=== PATIENT | female | born 1960 | race African-American/Black ===

== ENCOUNTER 2018-08-19 18:43 | Emergency (ER) | payer SELFPAY ==
[~2018-08-19] VITALS: Ht 162.6 cm; Wt 73.0 kg
[2018-08-19] MEDS ORDERED: SODIUM CHLORIDE 0.9% 1,000 ML IV ONE (23:27)
[2018-08-20 00:20] LABS: BASOPHILS % 0.6 % (0.0-2.0); EOSINOPHILS % 2.7 % (0.0-5.0); HEMATOCRIT. 38.1 % (36.0-48.0); HEMOGLOBIN. 12.3 g/dL (12.0-16.0); LYMPHOCYTES % 43.6 % (20.0-50.0); MEAN CORPUSCULAR HEMOGLOBIN 27.2 pg (28.0-32.0); MEAN CORPUSCULAR VOLUME 84.5 fL (81.0-99.0); MEAN PLATELET VOLUME 7.7 fl (7.4-10.4); MONOCYTES % 7.7 % (2.0-8.0); NEUTROPHILS % 45.4 % (40.0-76.0); PLATELET 305 x1000/uL (130-400); RED BLOOD CELL COUNT 4.51 mill/uL (4.2-5.4); RED CELL DISTRIBUTION WIDTH 13.7 % (11.6-14.6)
[2018-08-20 00:25] LABS: CHLORIDE 105 mEq/L (98-107)
[2018-08-20 00:33] LABS: ETHANOL BLOOD < 10 mg/dL
[2018-08-20 02:17] LABS: CLARITY URINE CLEAR (CLEAR); COLOR URINE YELLOW (YELLOW); KETONES URINE NEGATIVE (NEGATIVE); LEUKOCYTE ESTERASE URINE NEGATIVE (NEGATIVE); NITRITE URINE NEGATIVE (NEGATIVE); OCCULT BLOOD URINE NEGATIVE (NEGATIVE); PROTEIN URINE NEGATIVE (NEGATIVE); SPECIFIC GRAVITY URINE 1.009 (1.005-1.030); UROBILINOGEN URINE 0.2 E.U./dL (0.2-1.0)
[2018-08-20 02:32] LABS: *BARBITURATES SCREEN URINE NEGATIVE (NEGATIVE); *BENZODIAZEPINES SCREEN URINE NEGATIVE (NEGATIVE); *COCAINE SCREEN URINE NEGATIVE (NEGATIVE); METHADONE URINE SCREEN NEGATIVE (NEGATIVE); OPIATES URINE SCREEN NEGATIVE (NEGATIVE); PHENCYCLIDINE URINE SCREEN NEGATIVE (NEGATIVE)
[2018-08-20 02:33] LABS: *AMPHETAMINES SCREEN URINE NEGATIVE (NEGATIVE); CANNABINOID URINE SCREEN PRESUMTIVE POSITIVE (NEGATIVE)
[2018-08-20 02:34] VITALS: BP 143/71
== END 2018-08-20 02:39 | disposition home or self-care (01) ==
LOC: ER 18:43
DX: E03.9 Hypothyroidism, unspecified (principal); E11.9 Type 2 diabetes mellitus without complications; Z87.891 Personal history of nicotine dependence
CPT/HCPCS: 36415; 70450; 71045; 80053; 80305; 81003; 83690; 83880; 84443; 84484; 85025; 93005; 99284; G0482; J7030

== ENCOUNTER 2018-08-28 15:26 | Inpatient (IN) | payer SELFPAY ==
[~2018-08-28] VITALS: Ht 157.5 cm; Wt 82.6 kg
[2018-08-28] MEDS ORDERED: SODIUM CHLORIDE 0.9% 1,000 ML IV ONE (17:56)
[2018-08-28] MEDS ORDERED: MECLIZINE 25MG TABLET PO ONE (18:00)
[2018-08-28 18:55] LABS: BASOPHILS % 1.1 % (0.0-2.0); EOSINOPHILS % 1.6 % (0.0-5.0); HEMATOCRIT. 43.1 % (36.0-48.0); HEMOGLOBIN. 14.1 g/dL (12.0-16.0); LYMPHOCYTES % 35.5 % (20.0-50.0); MEAN CORPUSCULAR HEMOGLOBIN 27.9 pg (28.0-32.0); MEAN CORPUSCULAR VOLUME 85.3 fL (81.0-99.0); MONOCYTES % 5.6 % (2.0-8.0); NEUTROPHILS % 56.2 % (40.0-76.0); PLATELET 340 x1000/uL (130-400); RED BLOOD CELL COUNT 5.06 mill/uL (4.2-5.4); RED CELL DISTRIBUTION WIDTH 13.6 % (11.6-14.6)
[2018-08-28 19:00] LABS: CHLORIDE 105 mEq/L (98-107)
[2018-08-28 19:06] LABS: D-DIMER 0.26 mg/L FEU (<0.50); PARTIAL THROMBOPLASTIN TIME 26.9 sec (23.4-31.0)
[2018-08-28] MEDS ORDERED: ASPIRIN 325MG EC TABLET PO ONE (20:45)
[2018-08-28] MEDS ORDERED: ONDANSETRON HCL 4MG/2ML INJ IV PRN (22:30)
[2018-08-28] MEDS ORDERED: MAGNESIUM/ALUMINUM HYDROXIDE/SIMETHICONE 30ML UDC PO PRN (22:30)
[2018-08-28] MEDS ORDERED: ACETAMINOPHEN 325MG TABLET PO PRN (22:30)
[2018-08-28] MEDS ORDERED: HYDRALAZINE 20MG/ML VIAL IV PRN (22:30)
[2018-08-28] MEDS ORDERED: HYDROMORPHONE HCL/PF 2MG/ML CPJ IV PRN (22:30)
[2018-08-28] MEDS ORDERED: GUAIFENESIN 200MG/10ML SUGAR FREE UDC PO PRN (22:30)
[2018-08-28] MEDS ORDERED: DOCUSATE SODIUM 100MG CAPSULE PO PRN (22:30)
[2018-08-28] MEDS ORDERED: CLONIDINE 0.1MG TABLET PO PRN (22:30)
[2018-08-28] MEDS ORDERED: IPRATROPIUM/ALBUTEROL 0.5-3(2.5)MG/3ML NEB INH PRN (22:30)
[2018-08-28] MEDS ORDERED: HYDROCODONE/ACETAMINOPHEN 5/325MG TABLET PO PRN (22:30)
[2018-08-28] MEDS ORDERED: DIPHENHYDRAMINE 50MG/ML VIAL IV PRN (22:30)
[2018-08-28] MEDS ORDERED: LORAZEPAM 2MG/ML CPJ IV PRN (22:30)
[2018-08-29 03:00] VITALS: BP 133/71
[2018-08-29 04:00] VITALS: BP 136/65
[2018-08-29] MEDS: SODIUM CHLORIDE 0.9% INJ 3ML FLUSH IVF SCH ×2 (06:40→14:00)
[2018-08-29 07:34] LABS: BASOPHILS % 0.5 % (0.0-2.0); EOSINOPHILS % 2.2 % (0.0-5.0); HEMATOCRIT. 38.1 % (36.0-48.0); HEMOGLOBIN. 12.3 g/dL (12.0-16.0); MEAN CORPUSCULAR HEMOGLOBIN 27.2 pg (28.0-32.0); MEAN CORPUSCULAR VOLUME 84.3 fL (81.0-99.0); MEAN PLATELET VOLUME 7.9 fl (7.4-10.4); MONOCYTES % 5.9 % (2.0-8.0); NEUTROPHILS % 50.4 % (40.0-76.0); PLATELET 290 x1000/uL (130-400); RED BLOOD CELL COUNT 4.52 mill/uL (4.2-5.4); RED CELL DISTRIBUTION WIDTH 13.6 % (11.6-14.6)
[2018-08-29 07:57] LABS: CHLORIDE 109 mEq/L (98-107)
[2018-08-29 08:00] VITALS: BP 112/57
[2018-08-29 08:09] LABS: CREATINE KINASE 74 IU/L (26-192); T4 FREE 1.03 ng/dL (0.76-1.46)
[2018-08-29 08:10] LABS: HDL CHOLESTEROL 61 mg/dL (40-59)
[2018-08-29 08:11] LABS: LDL CHOLESTEROL 89 mg/dL (5-100)
[2018-08-29 08:18] LABS: CREATINE KINASE MB FRACTION < 1.0 ng/mL (0.5-3.6)
[2018-08-29] MEDS ORDERED: ENOXAPARIN 40MG/0.4ML SYR SUBCUT SCH (09:00)
[2018-08-29] MEDS ORDERED: ASPIRIN 81MG EC TABLET PO SCH (09:00)
[2018-08-29 11:57] VITALS: BP 127/66
[2018-08-29 16:00] VITALS: BP 118/64
[2018-08-29 16:06] LABS: CREATINE KINASE 72 IU/L (26-192)
[2018-08-29 16:07] LABS: CREATINE KINASE MB FRACTION < 1.0 ng/mL (0.5-3.6)
[2018-08-29] MEDS ORDERED: LEVO50TA PO (16:33)
[2018-08-29] MEDS ORDERED: METF-414 PO (16:33)
[2018-08-29] MEDS ORDERED: LOSA25TA12 MT (16:33)
== END 2018-08-29 18:00 | disposition home or self-care (01) | DRG 111 ==
LOC: ER 15:26 → 6WST 20:23 → ENRESERV 08-29 00:20
PROVIDERS: ADMIT Internal Medicine; ATTEND Internal Medicine
DX: R42 Dizziness and giddiness (principal); E03.9 Hypothyroidism, unspecified; R07.9 Chest pain, unspecified; E11.9 Type 2 diabetes mellitus without complications; F10.10 Alcohol abuse, uncomplicated; I10 Essential (primary) hypertension; Z79.899 Other long term (current) drug therapy
CPT/HCPCS: 36415; 71045; 80061; 82550; 82553; 82962; 83036; 83880; 84439; 84443; 84484; 85379; 93005; 93306; 93970; 96374; 99285; J1650; J7030; J8597

== ENCOUNTER 2019-02-25 16:43 | Inpatient (IN) | payer OTHER ==
[~2019-02-25] VITALS: Ht 160 cm; Wt 76.2 kg
[~2019-02-25 16:43] MED LIST: LEVO50TA PO; LOSA25TA26 MT; METF-414 PO
[2019-02-25] MEDS ORDERED: MORPHINE SULFATE 4 MG/ML CPJ (NOT FOR IM USE) IV STA (17:18)
[2019-02-25] MEDS ORDERED: ONDANSETRON HCL 4MG/2ML INJ IV STA (17:18)
[2019-02-25] MEDS ORDERED: ASPIRIN 81MG TABLET PO ONE (17:30)
[2019-02-25 17:41] LABS: CHLORIDE 106 mEq/L (98-107)
[2019-02-25 17:42] LABS: BASOPHILS % 0.6 % (0.0-2.0); EOSINOPHILS % 1.7 % (0.0-5.0); HEMATOCRIT. 37.2 % (36.0-48.0); HEMOGLOBIN. 12.2 g/dL (12.0-16.0); LYMPHOCYTES % 41.3 % (20.0-50.0); MEAN CORPUSCULAR HEMOGLOBIN 27.5 pg (28.0-32.0); MEAN CORPUSCULAR VOLUME 83.9 fL (81.0-99.0); MEAN PLATELET VOLUME 7.7 fl (7.4-10.4); NEUTROPHILS % 50.4 % (40.0-76.0); PLATELET 299 x1000/uL (130-400); RED BLOOD CELL COUNT 4.43 mill/uL (4.2-5.4); RED CELL DISTRIBUTION WIDTH 14.1 % (11.6-14.6)
[2019-02-25 17:45] LABS: ETHANOL BLOOD < 10 mg/dL
[2019-02-25 17:46] LABS: PARTIAL THROMBOPLASTIN TIME 27.2 sec (23.4-31.0); PROTHROMBIN TIME 10.2 sec (9.6-11.0)
[2019-02-25 18:51] LABS: CLARITY URINE CLEAR (CLEAR); COLOR URINE YELLOW (YELLOW); KETONES URINE NEGATIVE (NEGATIVE); LEUKOCYTE ESTERASE URINE NEGATIVE (NEGATIVE); NITRITE URINE NEGATIVE (NEGATIVE); OCCULT BLOOD URINE NEGATIVE (NEGATIVE); PROTEIN URINE NEGATIVE (NEGATIVE); UROBILINOGEN URINE 0.2 E.U./dL (0.2-1.0)
[2019-02-25 19:01] LABS: *AMPHETAMINES SCREEN URINE NEGATIVE (NEGATIVE); *BARBITURATES SCREEN URINE NEGATIVE (NEGATIVE); CANNABINOID URINE SCREEN PRESUMTIVE POSITIVE (NEGATIVE); OPIATES URINE SCREEN PRESUMTIVE POSITIVE (NEGATIVE); PHENCYCLIDINE URINE SCREEN NEGATIVE (NEGATIVE)
[2019-02-25 19:02] LABS: *BENZODIAZEPINES SCREEN URINE NEGATIVE (NEGATIVE); *COCAINE SCREEN URINE NEGATIVE (NEGATIVE); METHADONE URINE SCREEN NEGATIVE (NEGATIVE)
[2019-02-25] MEDS ORDERED: GABA-529 PO (22:29)
[2019-02-25] MEDS ORDERED: GABA-529 MT (22:29)
[2019-02-25] MEDS ORDERED: gabapentin (22:30)
[2019-02-25] MEDS ORDERED: iron PO (22:31)
[2019-02-25 23:03] VITALS: BP 124/37
[2019-02-25 23:28] VITALS: BP 124/37
[2019-02-25] MEDS ORDERED: IPRATROPIUM/ALBUTEROL 0.5-3(2.5)MG/3ML NEB INH PRN (23:30)
[2019-02-25] MEDS ORDERED: CLONIDINE 0.1MG TABLET PO PRN (23:30)
[2019-02-25] MEDS ORDERED: ACETAMINOPHEN 325MG TABLET PO PRN (23:30)
[2019-02-25] MEDS ORDERED: MAGNESIUM/ALUMINUM HYDROXIDE/SIMETHICONE 30ML UDC PO PRN (23:30)
[2019-02-25] MEDS ORDERED: DOCUSATE SODIUM 100MG CAPSULE PO PRN (23:30)
[2019-02-25] MEDS ORDERED: ONDANSETRON HCL 4MG/2ML INJ IV PRN (23:30)
[2019-02-26] VITALS (61 sets, daily range): BP systolic 95–153; BP diastolic 39–98
[2019-02-26 02:15] LABS: CHLORIDE 108 mEq/L (98-107)
[2019-02-26] MEDS ORDERED: ATROPINE SULFATE 1MG/10ML SYR IV NR (04:30)
[2019-02-26] MEDS ORDERED: ATROPINE SULFATE 1MG/10ML SYR IV PRN (05:15)
[2019-02-26 05:47] LABS: BASOPHILS % 0.7 % (0.0-2.0); EOSINOPHILS % 2.4 % (0.0-5.0); HEMOGLOBIN. 11.3 g/dL (12.0-16.0); LYMPHOCYTES % 52.8 % (20.0-50.0); MEAN CORPUSCULAR HEMOGLOBIN 27.8 pg (28.0-32.0); MEAN PLATELET VOLUME 7.7 fl (7.4-10.4); MONOCYTES % 5.8 % (2.0-8.0); NEUTROPHILS % 38.3 % (40.0-76.0); PLATELET 274 x1000/uL (130-400); RED BLOOD CELL COUNT 4.05 mill/uL (4.2-5.4); RED CELL DISTRIBUTION WIDTH 13.7 % (11.6-14.6)
[2019-02-26 05:53] LABS: LDL CHOLESTEROL 103 mg/dL (5-100)
[2019-02-26 05:54] LABS: CREATINE KINASE 99 IU/L (26-192); HDL CHOLESTEROL 62 mg/dL (40-59)
[2019-02-26 05:58] LABS: CREATINE KINASE MB FRACTION < 1.0 ng/mL (0.5-3.6)
[2019-02-26] MEDS: ENOXAPARIN 40MG/0.4ML SYR SUBCUT SCH ×2 (08:08→08:30)
[2019-02-26] MEDS: ASPIRIN 81MG EC TABLET PO SCH ×2 (08:08→08:30)
[2019-02-26] MEDS ORDERED: POTASSIUM CHLORIDE 20MEQ TABLET SR PO NR (12:15)
[2019-02-26] MEDS: HYDROCODONE/ACETAMINOPHEN 5/325MG TABLET PO PRN ×2 (14:48→23:07)
[2019-02-26 21:25] LABS: CREATINE KINASE 98 IU/L (26-192); T4 FREE 0.85 ng/dL (0.76-1.46)
[2019-02-26 21:26] LABS: CREATINE KINASE MB FRACTION < 1.0 ng/mL (0.5-3.6)
[2019-02-27] VITALS (47 sets, daily range): BP systolic 88–139; BP diastolic 41–85
[2019-02-27 04:37] LABS: BASOPHILS % 0.7 % (0.0-2.0); EOSINOPHILS % 2.1 % (0.0-5.0); HEMATOCRIT. 36.6 % (36.0-48.0); HEMOGLOBIN. 12.4 g/dL (12.0-16.0); LYMPHOCYTES % 50.4 % (20.0-50.0); MEAN CORPUSCULAR HEMOGLOBIN 28.4 pg (28.0-32.0); MEAN CORPUSCULAR VOLUME 83.7 fL (81.0-99.0); MEAN PLATELET VOLUME 7.6 fl (7.4-10.4); MONOCYTES % 6.9 % (2.0-8.0); NEUTROPHILS % 39.9 % (40.0-76.0); PLATELET 289 x1000/uL (130-400); RED BLOOD CELL COUNT 4.37 mill/uL (4.2-5.4); RED CELL DISTRIBUTION WIDTH 13.6 % (11.6-14.6)
[2019-02-27 04:39] LABS: CHLORIDE 104 mEq/L (98-107)
[2019-02-27 04:50] LABS: CREATINE KINASE 90 IU/L (26-192); LDL CHOLESTEROL 122 mg/dL (5-100)
[2019-02-27 04:51] LABS: CREATINE KINASE MB FRACTION < 1.0 ng/mL (0.5-3.6); HDL CHOLESTEROL 65 mg/dL (40-59)
[2019-02-27] MEDS ORDERED: REGADENOSON 0.4 MG/5 ML IV ONE (08:57)
[2019-02-27] MEDS ORDERED: HEPARIN SODIUM 1,000 UNIT/1ML VIAL IV ONE (12:19)
[2019-02-27] MEDS ORDERED: NICARDIPINE 100MCG/ML 10ML VIAL (CATH LAB) IV ONE (12:19)
[2019-02-27] MEDS ORDERED: NITROGLYCERIN 50MCG/ML 10ML VIAL (CATH LAB) IV ONE (12:19)
[2019-02-27] MEDS ORDERED: ASPIRIN/SOD BICARB/CITRIC ACID 324MG TAB EFF ONE (14:27)
[2019-02-27] MEDS ORDERED: IODIXANOL 320MG/ML 100 ML BOTTLE IV ONE (14:28)
[2019-02-27] MEDS ORDERED: LIDOCAINE HCL 1% 20ML VIAL (Pyxis) INJ ONE (14:28)
[2019-02-27] MEDS ORDERED: MIDAZOLAM HCL 2 MG/2 ML VIAL ONE (14:31)
[2019-02-27] MEDS ORDERED: FENTANYL CITRATE/PF 50MCG/ML 2ML VIAL ONE (14:31)
[2019-02-27] MEDS ORDERED: ONDANSETRON HCL 4MG/2ML INJ IV PRN (15:15)
[2019-02-27] MEDS ORDERED: MORPHINE SULFATE 2 MG/ML CPJ (NOT FOR IM USE) IV PRN (15:15)
[2019-02-27] MEDS ORDERED: ATROPINE SULFATE 1MG/10ML SYR IV PRN (15:15)
[2019-02-27] MEDS ORDERED: ACETAMINOPHEN 325MG TABLET PO PRN (15:15)
[2019-02-27] MEDS ORDERED: SODIUM CHLORIDE 0.45% 500 ML IV ONE (15:15)
[2019-02-27] MEDS: SODIUM CHLORIDE 0.45% 1,000 ML IV SCH (19:32)
[2019-02-28] VITALS (7 sets, daily range): BP systolic 113–151; BP diastolic 63–77
[2019-02-28] MEDS: SODIUM CHLORIDE 0.45% 1,000 ML IV SCH (03:29)
[2019-02-28 07:27] LABS: BASOPHILS % 0.4 % (0.0-2.0); EOSINOPHILS % 1.8 % (0.0-5.0); HEMATOCRIT. 40.4 % (36.0-48.0); HEMOGLOBIN. 13.3 g/dL (12.0-16.0); LYMPHOCYTES % 34.5 % (20.0-50.0); MEAN CORPUSCULAR HEMOGLOBIN 27.9 pg (28.0-32.0); MEAN CORPUSCULAR VOLUME 84.4 fL (81.0-99.0); MEAN PLATELET VOLUME 7.8 fl (7.4-10.4); MONOCYTES % 7.3 % (2.0-8.0); PLATELET 299 x1000/uL (130-400); RED BLOOD CELL COUNT 4.78 mill/uL (4.2-5.4); RED CELL DISTRIBUTION WIDTH 13.6 % (11.6-14.6)
[2019-02-28 07:40] LABS: CHLORIDE 104 mEq/L (98-107)
[2019-02-28] MEDS: ASPIRIN 81MG EC TABLET PO SCH (08:13)
[2019-02-28] MEDS: ENOXAPARIN 40MG/0.4ML SYR SUBCUT SCH (09:00)
[2019-02-28] MEDS ORDERED: ASPI-1158 PO (11:54)
[2019-02-28] MEDS ORDERED: ATOR20TA65 MT (11:54)
== END 2019-02-28 16:02 | disposition home or self-care (01) | DRG 287 ==
LOC: ER 18:01 → 5WST 20:40 → EDBEDREQ 20:45 → EDBEDREQTM 20:45 → ENRESERV 21:02 → MICUNO 02-26 00:30 → 5EST 02-27 11:55 → 3WST 02-27 15:42
PROVIDERS: ADMIT Internal Medicine; ATTEND Internal Medicine
PROC: 4A023N7 Measurement of Cardiac Sampling and Pressure, Left Heart, Percutaneous Approach (ICD-10-PCS; principal; 2019-02-27)
PROC: B2111ZZ Fluoroscopy of Multiple Coronary Arteries using Low Osmolar Contrast (ICD-10-PCS; 2019-02-27)
PROC: B2151ZZ Fluoroscopy of Left Heart using Low Osmolar Contrast (ICD-10-PCS; 2019-02-27)
DX: I44.1 Atrioventricular block, second degree (principal); E11.42 Type 2 diabetes mellitus with diabetic polyneuropathy; I42.9 Cardiomyopathy, unspecified; E03.9 Hypothyroidism, unspecified; R07.9 Chest pain, unspecified; D50.9 Iron deficiency anemia, unspecified; I25.9 Chronic ischemic heart disease, unspecified; F12.90 Cannabis use, unspecified, uncomplicated; I10 Essential (primary) hypertension; E78.5 Hyperlipidemia, unspecified; Z82.3 Family history of stroke; Z87.891 Personal history of nicotine dependence; Z79.890 Hormone replacement therapy; Z71.51 Drug abuse counseling and surveillance of drug abuser
CPT/HCPCS: 36415; 71045; 78452; 80048; 80061; 80305; 80320; 81003; 82550; 82553; 83735; 83880; 84439; 84443; 84481; 84484; 85379; 93005; 93017; 93306; 93458; 93970; 96374; 96375; 99285; A9500; C1769; C1893; J0461; J1644; J1650; J2250; J2270; J2405; J2785; J3010; J3490; J7620; Q9967; G0480

== ENCOUNTER 2019-09-30 18:30 | Emergency (ER) | payer OTHER ==
[~2019-09-30] VITALS: Ht 160 cm; Wt 69.0 kg
[~2019-09-30 18:30] MED LIST changes: +ASPI-1158 PO; +ATOR20TA65 MT; -LEVO50TA PO; -LOSA25TA26 MT; +gabapentin
[2019-09-30] MEDS ORDERED: NITROGLYCERIN 0.4MG TABLET SL SL PRN (22:45)
[2019-09-30] MEDS ORDERED: ASPIRIN 81MG TABLET PO ONE (22:45)
[2019-10-01 00:39] LABS: BASOPHILS % 0.6 % (0.0-2.0); EOSINOPHILS % 1.5 % (0.0-5.0); HEMATOCRIT. 37.9 % (36.0-48.0); HEMOGLOBIN. 12.6 g/dL (12.0-16.0); LYMPHOCYTES % 40.9 % (20.0-50.0); MEAN CORPUSCULAR VOLUME 84.1 fL (81.0-99.0); MEAN PLATELET VOLUME 7.4 fl (7.4-10.4); MONOCYTES % 7.6 % (2.0-8.0); NEUTROPHILS % 49.4 % (40.0-76.0); PLATELET 288 x1000/uL (130-400); RED BLOOD CELL COUNT 4.51 mill/uL (4.2-5.4); RED CELL DISTRIBUTION WIDTH 13.6 % (11.6-14.6)
[2019-10-01 00:45] LABS: CHLORIDE 105 mEq/L (98-107)
[2019-10-01 04:43] VITALS: BP 132/64
== END 2019-10-01 04:53 | disposition home or self-care (01) ==
LOC: ER 18:30
DX: R07.89 Other chest pain (principal); I11.9 Hypertensive heart disease without heart failure; E11.9 Type 2 diabetes mellitus without complications; E03.9 Hypothyroidism, unspecified; Z79.82 Long term (current) use of aspirin
CPT/HCPCS: 36415; 71045; 80053; 83880; 84484; 85025; 93005; 99285

== ENCOUNTER 2019-11-28 12:16 | Emergency (ER) | payer OTHER ==
[~2019-11-28] VITALS: Ht 157.5 cm; Wt 73.0 kg
[2019-11-28 13:50] VITALS: BP 115/72
== END 2019-11-28 14:26 | disposition home or self-care (01) ==
LOC: ER 12:16
DX: J40 Bronchitis, not specified as acute or chronic (principal); I11.9 Hypertensive heart disease without heart failure; E11.9 Type 2 diabetes mellitus without complications; E03.9 Hypothyroidism, unspecified; Z79.82 Long term (current) use of aspirin
CPT/HCPCS: 99281

== ENCOUNTER 2020-05-03 22:30 | Emergency (ER) | payer OTHER ==
[~2020-05-03] VITALS: Ht 162.6 cm; Wt 73.0 kg
[2020-05-03] MEDS ORDERED: ONDANSETRON HCL 4MG/2ML INJ IV STA (23:32)
[2020-05-03] MEDS ORDERED: SODIUM CHLORIDE 0.9% 1,000 ML IV ONE (23:32)
[2020-05-03] MEDS ORDERED: KETOROLAC 30MG/ML VIAL IV STA (23:32)
[2020-05-03] MEDS ORDERED: MAGNESIUM/ALUMINUM HYDROXIDE/SIMETHICONE 30ML UDC PO STA (23:32)
[2020-05-04 00:56] LABS: BASOPHILS % 0.3 % (0.0-2.0); EOSINOPHILS % 0.2 % (0.0-5.0); HEMATOCRIT. 36.6 % (36.0-48.0); HEMOGLOBIN. 12.4 g/dL (12.0-16.0); LYMPHOCYTES % 14.7 % (20.0-50.0); MEAN CORPUSCULAR HEMOGLOBIN 28.4 pg (28.0-32.0); MEAN CORPUSCULAR VOLUME 83.7 fL (81.0-99.0); MEAN PLATELET VOLUME 7.5 fl (7.4-10.4); MONOCYTES % 4.4 % (2.0-8.0); NEUTROPHILS % 80.4 % (40.0-76.0); PLATELET 260 x1000/uL (130-400); RED BLOOD CELL COUNT 4.38 mill/uL (4.2-5.4); RED CELL DISTRIBUTION WIDTH 13.5 % (11.6-14.6)
[2020-05-04 00:58] LABS: CHLORIDE 105 mEq/L (98-107)
[2020-05-04 04:15] VITALS: BP 122/68
== END 2020-05-04 04:34 | disposition home or self-care (01) ==
LOC: ER 22:30
DX: R10.9 Unspecified abdominal pain (principal); A05.9 Bacterial foodborne intoxication, unspecified; E11.9 Type 2 diabetes mellitus without complications; E03.9 Hypothyroidism, unspecified; Z79.82 Long term (current) use of aspirin
CPT/HCPCS: 36415; 76705; 80053; 83690; 85025; 93005; 96361; 96374; 96375; 99285; J1885; J2405; J7030

== ENCOUNTER 2020-06-17 10:24 | Emergency (ER) | payer OTHER ==
[~2020-06-17] VITALS: Ht 157.5 cm; Wt 72.0 kg
[2020-06-17 12:06] LABS: BASOPHILS % 0.6 % (0.0-2.0); EOSINOPHILS % 2.6 % (0.0-5.0); HEMATOCRIT. 36.7 % (36.0-48.0); HEMOGLOBIN. 12.1 g/dL (12.0-16.0); LYMPHOCYTES % 36.7 % (20.0-50.0); MEAN CORPUSCULAR HEMOGLOBIN 27.9 pg (28.0-32.0); MEAN CORPUSCULAR VOLUME 84.7 fL (81.0-99.0); MEAN PLATELET VOLUME 8.5 fl (7.4-10.4); MONOCYTES % 6.7 % (2.0-8.0); NEUTROPHILS % 53.4 % (40.0-76.0); PLATELET 270 x1000/uL (130-400); RED BLOOD CELL COUNT 4.33 mill/uL (4.2-5.4); RED CELL DISTRIBUTION WIDTH 13.5 % (11.6-14.6)
[2020-06-17 12:09] LABS: CHLORIDE 104 mEq/L (98-107)
[2020-06-17 12:16] LABS: CLARITY URINE CLEAR (CLEAR); COLOR URINE YELLOW (YELLOW); KETONES URINE NEGATIVE (NEGATIVE); LEUKOCYTE ESTERASE URINE NEGATIVE (NEGATIVE); NITRITE URINE NEGATIVE (NEGATIVE); OCCULT BLOOD URINE NEGATIVE (NEGATIVE); PROTEIN URINE NEGATIVE (NEGATIVE); UROBILINOGEN URINE 0.2 E.U./dL (0.2-1.0)
[2020-06-17 12:39] LABS: *AMPHETAMINES SCREEN URINE NEGATIVE (NEGATIVE); *BARBITURATES SCREEN URINE NEGATIVE (NEGATIVE)
[2020-06-17 12:40] LABS: *BENZODIAZEPINES SCREEN URINE NEGATIVE (NEGATIVE); *COCAINE SCREEN URINE NEGATIVE (NEGATIVE); CANNABINOID URINE SCREEN PRESUMTIVE POSITIVE (NEGATIVE); METHADONE URINE SCREEN NEGATIVE (NEGATIVE); OPIATES URINE SCREEN NEGATIVE (NEGATIVE); PHENCYCLIDINE URINE SCREEN NEGATIVE (NEGATIVE)
[2020-06-17 15:01] VITALS: BP 123/74
== END 2020-06-17 15:30 | disposition home or self-care (01) ==
LOC: ER 10:24
DX: M94.0 Chondrocostal junction syndrome [Tietze] (principal); F12.10 Cannabis abuse, uncomplicated; E11.9 Type 2 diabetes mellitus without complications; Z79.899 Other long term (current) drug therapy
CPT/HCPCS: 36415; 71045; 80053; 80305; 81003; 83605; 83880; 84484; 85025; 93005; 99285

== ENCOUNTER 2020-12-10 18:58 | Inpatient (IN) | payer SELFPAY ==
[~2020-12-10] VITALS: Ht 162.6 cm; Wt 67.3 kg
[~2020-12-10 18:58] MED LIST changes: -ASPI-1158 PO; +ASPI-1406 PO
[2020-12-10] MEDS ORDERED: METHYLPREDNISOLONE SOD SUCC 125 MG/2 ML VIAL IV ONE (20:45)
[2020-12-10] MEDS ORDERED: IPRATROPIUM/ALBUTEROL 0.5-3(2.5)MG/3ML NEB HHN ONE (20:45)
[2020-12-10 20:54] LABS: BASOPHILS % 0.5 % (0.0-2.0); CHLORIDE 106 mEq/L (98-107); EOSINOPHILS % 0.8 % (0.0-5.0); HEMOGLOBIN. 13.6 g/dL (12.0-16.0); LYMPHOCYTES % 12.7 % (20.0-50.0); MEAN CORPUSCULAR HEMOGLOBIN 28.2 pg (28.0-32.0); MEAN CORPUSCULAR VOLUME 85.5 fL (81.0-99.0); MEAN PLATELET VOLUME 7.7 fl (7.4-10.4); MONOCYTES % 7.2 % (2.0-8.0); NEUTROPHILS % 78.8 % (40.0-76.0); PLATELET 289 x1000/uL (130-400); RED CELL DISTRIBUTION WIDTH 13.4 % (11.6-14.6)
[2020-12-11] MEDS ORDERED: ALBUTEROL (0.083%) 2.5MG/3ML NEB HHN ONE (00:15)
[2020-12-11] MEDS ORDERED: IPRATROPIUM BROMIDE (0.02%) 0.5MG/2.5ML NEB HHN ONE (00:15)
[2020-12-11] MEDS: METHYLPREDNISOLONE SOD SUCC 40 MG/ML VIAL IV SCH ×2 (06:00→13:38)
[2020-12-11 10:30] VITALS: BP 130/79
[2020-12-11 11:00] VITALS: BP 113/62
[2020-12-11] MEDS ORDERED: LEVOTHYROXINE SODIUM 50MCG TABLET PO ONE (11:15)
[2020-12-11] MEDS: LEVOTHYROXINE SODIUM 50MCG TABLET PO SCH (12:00)
[2020-12-11] MEDS ORDERED: *PATIENT'S OWN MEDICATION STORAGE XX SCH (12:00)
[2020-12-11] MEDS ORDERED: IPRATROPIUM/ALBUTEROL 0.5-3(2.5)MG/3ML NEB HHN PRN (12:15)
[2020-12-11] MEDS ORDERED: DEXTROSE 50% WATER 50ML SYRINGE IV PRN (12:15)
[2020-12-11] MEDS ORDERED: ALBUTEROL (0.083%) 2.5MG/3ML NEB HHN SCH (12:45)
[2020-12-11] MEDS: INSULIN LISPRO 100 UNITS/ML SUBCUT SCH ×3 (12:50→22:30)
[2020-12-11] MEDS: BLOOD SUGAR DIAGNOSTIC STRIP TEST SCH ×3 (13:19→21:50)
[2020-12-11] MEDS: LEVOFLOXACIN 500MG PREMIX 100 ML IV SCH ×2 (13:38→13:39)
[2020-12-11] MEDS ORDERED: TRAMADOL 50MG TABLET PO PRN (13:45)
[2020-12-11] MEDS: ENOXAPARIN 40MG/0.4ML SYR SUBCUT SCH (14:30)
[2020-12-11] MEDS: IPRATROPIUM/ALBUTEROL 0.5-3(2.5)MG/3ML NEB HHN SCH ×2 (15:06→21:23)
[2020-12-11 16:00] VITALS: BP 119/65
[2020-12-11] MEDS ORDERED: NON FORMULARY PATIENT HOME MED ORI SCH (17:00)
[2020-12-11] MEDS: METFORMIN HCL 500MG TABLET PO SCH (17:47)
[2020-12-11 20:00] VITALS: BP 137/72
[2020-12-11] MEDS: BUDESONIDE 0.5MG/2ML NEB HHN SCH (21:27)
[2020-12-11] MEDS: FAMOTIDINE 20MG/2ML VIAL IV SCH (22:38)
[2020-12-12] VITALS: BP 108/56
[2020-12-12] MEDS: IPRATROPIUM/ALBUTEROL 0.5-3(2.5)MG/3ML NEB HHN SCH ×3 (01:09→20:23)
[2020-12-12 04:00] VITALS: BP 119/59
[2020-12-12] MEDS: INSULIN LISPRO 100 UNITS/ML SUBCUT SCH ×4 (07:50→21:00)
[2020-12-12 08:00] VITALS: BP 142/75
[2020-12-12] MEDS: METFORMIN HCL 500MG TABLET PO SCH ×2 (08:18→17:21)
[2020-12-12] MEDS: LEVOTHYROXINE SODIUM 50MCG TABLET PO SCH (08:19)
[2020-12-12] MEDS: BLOOD SUGAR DIAGNOSTIC STRIP TEST SCH ×4 (08:19→21:30)
[2020-12-12] MEDS: ENOXAPARIN 40MG/0.4ML SYR SUBCUT SCH (08:20)
[2020-12-12] MEDS: BUDESONIDE 0.5MG/2ML NEB HHN SCH ×2 (08:34→20:24)
[2020-12-12] MEDS: FAMOTIDINE 20MG/2ML VIAL IV SCH (08:35)
[2020-12-12 10:43] LABS: BASOPHILS % 0.1 % (0.0-2.0); EOSINOPHILS % 0.1 % (0.0-5.0); HEMATOCRIT. 38.9 % (36.0-48.0); HEMOGLOBIN. 12.8 g/dL (12.0-16.0); LYMPHOCYTES % 15.1 % (20.0-50.0); MEAN CORPUSCULAR VOLUME 84.8 fL (81.0-99.0); MEAN PLATELET VOLUME 7.7 fl (7.4-10.4); MONOCYTES % 6.8 % (2.0-8.0); NEUTROPHILS % 77.9 % (40.0-76.0); PLATELET 320 x1000/uL (130-400); RED BLOOD CELL COUNT 4.58 mill/uL (4.2-5.4); RED CELL DISTRIBUTION WIDTH 13.2 % (11.6-14.6)
[2020-12-12 10:56] LABS: CHLORIDE 104 mEq/L (98-107)
[2020-12-12] MEDS ORDERED: FUROSEMIDE 40MG/4ML VIAL IVP NR (11:28)
[2020-12-12 12:00] VITALS: BP 133/60
[2020-12-12] MEDS: LOSARTAN POTASSIUM 25 MG TABLET PO SCH (12:05)
[2020-12-12] MEDS: ASPIRIN 81MG EC TABLET PO SCH (12:05)
[2020-12-12 12:08] LABS: *AMPHETAMINES SCREEN URINE NEGATIVE (NEGATIVE); *BARBITURATES SCREEN URINE NEGATIVE (NEGATIVE); *BENZODIAZEPINES SCREEN URINE NEGATIVE (NEGATIVE); *COCAINE SCREEN URINE NEGATIVE (NEGATIVE)
[2020-12-12 12:09] LABS: CANNABINOID URINE SCREEN PRESUMTIVE POSITIVE (NEGATIVE); METHADONE URINE SCREEN NEGATIVE (NEGATIVE); OPIATES URINE SCREEN PRESUMTIVE POSITIVE (NEGATIVE); PHENCYCLIDINE URINE SCREEN NEGATIVE (NEGATIVE)
[2020-12-12 16:00] VITALS: BP 105/65
[2020-12-12] MEDS ORDERED: IOHEXOL-350 100 ML BOTTLE ONE (18:34)
[2020-12-12 20:00] VITALS: BP 135/48
[2020-12-12] MEDS: FAMOTIDINE 20MG TABLET PO SCH (21:30)
[2020-12-12] MEDS: ATORVASTATIN CALCIUM 20MG TABLET PO SCH (21:30)
[2020-12-12] MEDS: METHYLPREDNISOLONE SOD SUCC 40 MG/ML VIAL IV SCH (21:32)
[2020-12-13] VITALS: BP 135/67
[2020-12-13] MEDS: IPRATROPIUM/ALBUTEROL 0.5-3(2.5)MG/3ML NEB HHN SCH ×6 (00:32→23:51)
[2020-12-13 04:00] VITALS: BP 140/72
[2020-12-13] MEDS: LEVOTHYROXINE SODIUM 50MCG TABLET PO SCH (06:03)
[2020-12-13] MEDS: METHYLPREDNISOLONE SOD SUCC 40 MG/ML VIAL IV SCH ×2 (06:03→13:47)
[2020-12-13] MEDS: BLOOD SUGAR DIAGNOSTIC STRIP TEST SCH ×4 (06:03→20:58)
[2020-12-13] MEDS: INSULIN LISPRO 100 UNITS/ML SUBCUT SCH ×4 (06:21→20:58)
[2020-12-13] MEDS: METFORMIN HCL 500MG TABLET PO SCH ×2 (06:23→17:15)
[2020-12-13 08:00] VITALS: BP 133/61
[2020-12-13] MEDS: FUROSEMIDE 40MG/4ML VIAL IVP SCH (08:20)
[2020-12-13] MEDS: LOSARTAN POTASSIUM 25 MG TABLET PO SCH (08:21)
[2020-12-13] MEDS: ONDANSETRON HCL 4MG/2ML INJ IV PRN (08:21)
[2020-12-13] MEDS: ASPIRIN 81MG EC TABLET PO SCH (08:21)
[2020-12-13] MEDS: FAMOTIDINE 20MG TABLET PO SCH ×2 (08:21→20:57)
[2020-12-13] MEDS: ENOXAPARIN 40MG/0.4ML SYR SUBCUT SCH (08:24)
[2020-12-13] MEDS: BUDESONIDE 0.5MG/2ML NEB HHN SCH ×2 (09:18→19:52)
[2020-12-13] MEDS: LEVOFLOXACIN 500MG TABLET PO SCH (11:51)
[2020-12-13 12:00] VITALS: BP 132/48
[2020-12-13 16:00] VITALS: BP 117/59
[2020-12-13] MEDS ORDERED: BACLOFEN 10MG TABLET PO PRN (17:00)
[2020-12-13] MEDS ORDERED: BACLOFEN 10MG TABLET PO NR (17:00)
[2020-12-13] MEDS: PREDNISONE 20MG TABLET PO SCH (17:15)
[2020-12-13 20:00] VITALS: BP 119/50
[2020-12-13] MEDS: ATORVASTATIN CALCIUM 20MG TABLET PO SCH (20:57)
[2020-12-14] VITALS: BP 118/59
[2020-12-14] MEDS: IPRATROPIUM/ALBUTEROL 0.5-3(2.5)MG/3ML NEB HHN SCH ×4 (03:39→16:00)
[2020-12-14 04:00] VITALS: BP 116/56
[2020-12-14] MEDS: LEVOTHYROXINE SODIUM 50MCG TABLET PO SCH (06:24)
[2020-12-14] MEDS: INSULIN LISPRO 100 UNITS/ML SUBCUT SCH ×5 (06:25→20:47)
[2020-12-14] MEDS: BLOOD SUGAR DIAGNOSTIC STRIP TEST SCH ×4 (06:26→20:47)
[2020-12-14 08:00] VITALS: BP 118/82
[2020-12-14] MEDS: LOSARTAN POTASSIUM 25 MG TABLET PO SCH (08:16)
[2020-12-14] MEDS: FAMOTIDINE 20MG TABLET PO SCH ×2 (08:16→20:47)
[2020-12-14] MEDS: ASPIRIN 81MG EC TABLET PO SCH (08:16)
[2020-12-14] MEDS: FUROSEMIDE 40MG/4ML VIAL IVP SCH (08:17)
[2020-12-14] MEDS: METFORMIN HCL 500MG TABLET PO SCH ×2 (08:17→17:54)
[2020-12-14] MEDS: ENOXAPARIN 40MG/0.4ML SYR SUBCUT SCH (08:18)
[2020-12-14] MEDS: PREDNISONE 20MG TABLET PO SCH ×2 (08:20→17:54)
[2020-12-14] MEDS: BUDESONIDE 0.5MG/2ML NEB HHN SCH (08:38)
[2020-12-14] MEDS: ONDANSETRON HCL 4MG/2ML INJ IV PRN (10:59)
[2020-12-14 12:00] VITALS: BP 115/70
[2020-12-14] MEDS: LEVOFLOXACIN 500MG TABLET PO SCH (12:21)
[2020-12-14] MEDS ORDERED: TERBUTALINE SULFATE 1MG/ML VIAL SUBCUT NR (13:00)
[2020-12-14 13:34] LABS: CHLORIDE 97 mEq/L (98-107)
[2020-12-14 16:00] VITALS: BP 111/52
[2020-12-14] MEDS: DILTIAZEM HCL 30MG TABLET PO SCH ×2 (17:55→21:40)
[2020-12-14 20:00] VITALS: BP 138/72
[2020-12-14] MEDS: IPRATROPIUM BROMIDE (0.02%) 0.5MG/2.5ML NEB HHN SCH (20:14)
[2020-12-14] MEDS: ATORVASTATIN CALCIUM 20MG TABLET PO SCH (20:47)
[2020-12-15] VITALS: BP 105/55
[2020-12-15 04:00] VITALS: BP 134/81
[2020-12-15] MEDS: IPRATROPIUM BROMIDE (0.02%) 0.5MG/2.5ML NEB HHN SCH ×4 (04:50→21:00)
[2020-12-15] MEDS: DILTIAZEM HCL 30MG TABLET PO SCH (05:56)
[2020-12-15] MEDS: LEVOTHYROXINE SODIUM 50MCG TABLET PO SCH (05:58)
[2020-12-15] MEDS: BLOOD SUGAR DIAGNOSTIC STRIP TEST SCH ×4 (06:35→21:00)
[2020-12-15] MEDS: INSULIN LISPRO 100 UNITS/ML SUBCUT SCH ×4 (06:35→21:00)
[2020-12-15 08:00] VITALS: BP 115/70
[2020-12-15] MEDS: ASPIRIN 81MG EC TABLET PO SCH (09:17)
[2020-12-15] MEDS: FAMOTIDINE 20MG TABLET PO SCH ×2 (09:17→22:25)
[2020-12-15] MEDS: PREDNISONE 20MG TABLET PO SCH ×2 (09:18→17:46)
[2020-12-15] MEDS: FUROSEMIDE 40MG/4ML VIAL IVP SCH (09:18)
[2020-12-15] MEDS: LOSARTAN POTASSIUM 25 MG TABLET PO SCH (09:18)
[2020-12-15] MEDS: ENOXAPARIN 40MG/0.4ML SYR SUBCUT SCH (09:19)
[2020-12-15] MEDS: METFORMIN HCL 500MG TABLET PO SCH ×2 (09:27→17:46)
[2020-12-15] MEDS: ONDANSETRON HCL 4MG/2ML INJ IV PRN (11:21)
[2020-12-15 12:00] VITALS: BP 106/53
[2020-12-15] MEDS: LEVOFLOXACIN 500MG TABLET PO SCH (12:54)
[2020-12-15] MEDS: VERAPAMIL HCL 40MG TABLET PO SCH ×2 (15:00→22:31)
[2020-12-15 16:00] VITALS: BP 98/50
[2020-12-15] MEDS ORDERED: FLUT1DIS3 INH (16:07)
[2020-12-15] MEDS ORDERED: ALBU18HF2 IH (16:07)
[2020-12-15] MEDS ORDERED: VER40 PO (16:07)
[2020-12-15] MEDS ORDERED: P20 MT (16:07)
[2020-12-15 20:00] VITALS: BP 127/58
[2020-12-15] MEDS: GUAIFENESIN 600MG ER TABLET PO SCH (22:26)
[2020-12-15] MEDS: ATORVASTATIN CALCIUM 20MG TABLET PO SCH (22:26)
[2020-12-16] VITALS: BP_SYST 114; BP_SYST 130; BP_DIAS 75; BP_DIAS 76; BP_DIAS 96
[2020-12-16] MEDS: IPRATROPIUM BROMIDE (0.02%) 0.5MG/2.5ML NEB HHN SCH ×5 (02:38→17:08)
[2020-12-16 04:00] VITALS: BP 130/79
[2020-12-16] MEDS: BLOOD SUGAR DIAGNOSTIC STRIP TEST SCH ×4 (06:02→20:50)
[2020-12-16] MEDS: LEVOTHYROXINE SODIUM 50MCG TABLET PO SCH (06:11)
[2020-12-16] MEDS: VERAPAMIL HCL 40MG TABLET PO SCH (06:12)
[2020-12-16] MEDS: INSULIN LISPRO 100 UNITS/ML SUBCUT SCH ×4 (07:15→21:24)
[2020-12-16 08:00] VITALS: BP 144/60
[2020-12-16] MEDS: ENOXAPARIN 40MG/0.4ML SYR SUBCUT SCH (10:22)
[2020-12-16] MEDS: FUROSEMIDE 40MG/4ML VIAL IVP SCH (10:22)
[2020-12-16] MEDS: GUAIFENESIN 600MG ER TABLET PO SCH ×2 (10:23→20:30)
[2020-12-16] MEDS: ASPIRIN 81MG EC TABLET PO SCH (10:23)
[2020-12-16] MEDS: METFORMIN HCL 500MG TABLET PO SCH ×2 (10:23→17:43)
[2020-12-16] MEDS: PREDNISONE 20MG TABLET PO SCH (10:24)
[2020-12-16] MEDS: FAMOTIDINE 20MG TABLET PO SCH ×2 (10:24→20:30)
[2020-12-16] MEDS: LOSARTAN POTASSIUM 25 MG TABLET PO SCH (10:24)
[2020-12-16 10:28] LABS: HEMATOCRIT. 45.3 % (36.0-48.0); HEMOGLOBIN. 15.3 g/dL (12.0-16.0); MEAN CORPUSCULAR HEMOGLOBIN 28.5 pg (28.0-32.0); MEAN CORPUSCULAR VOLUME 84.2 fL (81.0-99.0); MEAN PLATELET VOLUME 7.3 fl (7.4-10.4); PLATELET 413 x1000/uL (130-400); RED BLOOD CELL COUNT 5.37 mill/uL (4.2-5.4); RED CELL DISTRIBUTION WIDTH 12.9 % (11.6-14.6)
[2020-12-16 10:34] LABS: CHLORIDE 95 mEq/L (98-107)
[2020-12-16] MEDS ORDERED: AMIODARONE HCL 200 MG TABLET PO SCH (11:00)
[2020-12-16 11:15] LABS: PLATELET ESTIMATE SLIGHTLY INCREASED
[2020-12-16 12:00] VITALS: BP 131/69
[2020-12-16 16:00] VITALS: BP 119/77
[2020-12-16] MEDS ORDERED: BACLOFEN 10MG TABLET PO PRN (18:15)
[2020-12-16 20:00] VITALS: BP 123/75
[2020-12-16] MEDS: ONDANSETRON HCL 4MG/2ML INJ IV PRN (20:30)
[2020-12-16] MEDS: ATORVASTATIN CALCIUM 20MG TABLET PO SCH (20:30)
[2020-12-17] VITALS (7 sets, daily range): BP systolic 98–143; BP diastolic 66–84
[2020-12-17] MEDS: IPRATROPIUM BROMIDE (0.02%) 0.5MG/2.5ML NEB HHN SCH ×6 (04:55→20:52)
[2020-12-17] MEDS: LEVOTHYROXINE SODIUM 50MCG TABLET PO SCH (05:46)
[2020-12-17] MEDS: BLOOD SUGAR DIAGNOSTIC STRIP TEST SCH ×4 (06:23→21:00)
[2020-12-17] MEDS: INSULIN LISPRO 100 UNITS/ML SUBCUT SCH ×4 (07:15→21:00)
[2020-12-17] MEDS: BUDESONIDE 0.5MG/2ML NEB HHN SCH ×2 (09:21→20:52)
[2020-12-17] MEDS: FAMOTIDINE 20MG TABLET PO SCH ×2 (09:53→22:27)
[2020-12-17] MEDS: ENOXAPARIN 40MG/0.4ML SYR SUBCUT SCH (09:53)
[2020-12-17] MEDS: GUAIFENESIN 600MG ER TABLET PO SCH ×2 (09:53→22:27)
[2020-12-17] MEDS: PREDNISONE 20MG TABLET PO SCH (09:54)
[2020-12-17] MEDS: ASPIRIN 81MG EC TABLET PO SCH (09:54)
[2020-12-17] MEDS: FUROSEMIDE 40MG/4ML VIAL IVP SCH (09:54)
[2020-12-17] MEDS: LOSARTAN POTASSIUM 25 MG TABLET PO SCH (09:54)
[2020-12-17] MEDS: METFORMIN HCL 500MG TABLET PO SCH ×2 (09:55→17:59)
[2020-12-17] MEDS ORDERED: AMIODARONE HCL 200 MG TABLET PO SCH (10:45)
[2020-12-17] MEDS: ATORVASTATIN CALCIUM 20MG TABLET PO SCH (22:26)
[2020-12-17] MEDS: ONDANSETRON HCL 4MG/2ML INJ IV PRN (22:34)
[2020-12-18] VITALS: BP 111/63
[2020-12-18] MEDS: IPRATROPIUM BROMIDE (0.02%) 0.5MG/2.5ML NEB HHN SCH ×4 (00:36→13:05)
[2020-12-18 04:00] VITALS: BP 122/78
[2020-12-18] MEDS: LEVOTHYROXINE SODIUM 50MCG TABLET PO SCH (06:18)
[2020-12-18] MEDS: BLOOD SUGAR DIAGNOSTIC STRIP TEST SCH ×2 (06:18→11:30)
[2020-12-18] MEDS: INSULIN LISPRO 100 UNITS/ML SUBCUT SCH ×2 (06:56→11:30)
[2020-12-18] MEDS: METFORMIN HCL 500MG TABLET PO SCH (07:15)
[2020-12-18 08:00] VITALS: BP 141/77
[2020-12-18] MEDS ORDERED: FUROSEMIDE 40MG TABLET PO SCH (09:00)
[2020-12-18] MEDS: FAMOTIDINE 20MG TABLET PO SCH (09:26)
[2020-12-18] MEDS: ASPIRIN 81MG EC TABLET PO SCH (09:26)
[2020-12-18] MEDS: ENOXAPARIN 40MG/0.4ML SYR SUBCUT SCH (09:26)
[2020-12-18] MEDS: GUAIFENESIN 600MG ER TABLET PO SCH (09:26)
[2020-12-18] MEDS: PREDNISONE 20MG TABLET PO SCH (09:26)
[2020-12-18] MEDS: LOSARTAN POTASSIUM 25 MG TABLET PO SCH (09:26)
[2020-12-18 12:00] VITALS: BP 113/70
[2020-12-18] MEDS: BUDESONIDE 0.5MG/2ML NEB HHN SCH (13:06)
[2020-12-18] MEDS ORDERED: POTASSIUM CHLORIDE 20MEQ/PACKET PO NR (14:48)
[2020-12-18 15:00] VITALS: BP 113/70
== END 2020-12-18 15:52 | disposition home or self-care (01) | DRG 133 ==
LOC: ER 18:58 → 6EST 12-11 03:51 → ENRESERV 12-11 08:16 → 5WST 12-12 15:55
PROVIDERS: ADMIT Internal Medicine; ATTEND Internal Medicine
DX: J96.01 Acute respiratory failure with hypoxia (principal); I47.2 Ventricular tachycardia; I42.0 Dilated cardiomyopathy; J45.901 Unspecified asthma with (acute) exacerbation; I48.91 Unspecified atrial fibrillation; G90.8 Other disorders of autonomic nervous system; I25.10 Atherosclerotic heart disease of native coronary artery without angina pectoris; M94.0 Chondrocostal junction syndrome [Tietze]; K52.9 Noninfective gastroenteritis and colitis, unspecified; M62.830 Muscle spasm of back; E03.9 Hypothyroidism, unspecified; E11.9 Type 2 diabetes mellitus without complications; F41.9 Anxiety disorder, unspecified; Z87.891 Personal history of nicotine dependence; Z79.899 Other long term (current) drug therapy; Z87.440 Personal history of urinary (tract) infections; Z20.822 Contact with and (suspected) exposure to COVID-19
CPT/HCPCS: 36415; 71045; 71275; 78580; 80048; 80053; 80305; 82962; 83036; 83735; 83880; 84132; 84443; 84484; 85025; 87426; 93005; 93306; 94640; 97162; 99285; J1650; J1815; J1940; J1956; J2405; J2920; J2930; J3105; J3490; J7040; J7512; J7626; Q9967

== ENCOUNTER 2022-05-21 02:45 | Emergency (ER) | payer MEDICAID, OTHER ==
[~2022-05-21] VITALS: Ht 157.5 cm; Wt 60.0 kg
[~2022-05-21 02:45] MED LIST changes: +ALBU18HF2 IH; +FLUT1DIS3 INH; +P20 MT; +VER40 PO
[2022-05-21] MEDS ORDERED: IBUPROFEN 600MG TABLET PO ONE (04:15)
[2022-05-21 04:56] VITALS: BP 124/75
== END 2022-05-21 04:57 | disposition home or self-care (01) ==
LOC: ER 02:45
DX: M79.672 Pain in left foot (principal); M77.32 Calcaneal spur, left foot; E11.40 Type 2 diabetes mellitus with diabetic neuropathy, unspecified; J45.909 Unspecified asthma, uncomplicated; E03.9 Hypothyroidism, unspecified; F41.9 Anxiety disorder, unspecified; Z79.84 Long term (current) use of oral hypoglycemic drugs; Z79.82 Long term (current) use of aspirin
CPT/HCPCS: 73630; 99283

== ENCOUNTER 2022-09-26 10:22 | Emergency (ER) | payer MEDICAID, OTHER ==
[~2022-09-26] VITALS: Ht 160 cm; Wt 68.0 kg
[2022-09-26 10:33] VITALS: BP 163/90
[2022-09-26] MEDS ORDERED: ALBU90AE INH (14:10)
[2022-09-26] MEDS ORDERED: P20 MT (14:10)
[2022-09-26] MEDS ORDERED: PREDNISONE 20MG TABLET PO ONE (14:15)
== END 2022-09-26 14:24 | disposition home or self-care (01) ==
LOC: ER 10:22
DX: J06.9 Acute upper respiratory infection, unspecified (principal); J45.901 Unspecified asthma with (acute) exacerbation; E11.9 Type 2 diabetes mellitus without complications; E03.9 Hypothyroidism, unspecified; F41.9 Anxiety disorder, unspecified; Z79.82 Long term (current) use of aspirin; Z87.440 Personal history of urinary (tract) infections
CPT/HCPCS: 71045; 99283; J7512

== ENCOUNTER 2024-09-18 16:01 | Emergency (ER) | payer OTHER ==
[~2024-09-18] VITALS: Ht 162.6 cm; Wt 66.0 kg
[~2024-09-18 16:01] MED LIST changes: +ALBU90AE INH
[2024-09-18 16:09] VITALS: PULSE 115; O2SAT 99
[2024-09-18 16:17] VITALS: BP 121/68; RESP 18; TEMP 36.9; O2SAT 98
== END 2024-09-18 22:05 | disposition left against medical advice (07) ==
LOC: ER 16:01
DX: Z00.00 Encounter for general adult medical examination without abnormal findings (principal); Z53.21 Procedure and treatment not carried out due to patient leaving prior to being seen by health care provider